=== PATIENT | male | born 1985 | race Two or more races ===

== ENCOUNTER 2024-06-07 17:53 | Emergency (ER) | payer MEDICAID, OTHER ==
[~2024-06-07] VITALS: Ht 172.7 cm; Wt 117.8 kg
[2024-06-07 18:22] VITALS: BP 152/92; PULSE 111; RESP 16; TEMP 98.1; O2SAT 96
[2024-06-07] MEDS: HYDROcodone-ACET 10/325MG TAB PO ONE (19:05)
[2024-06-07] MEDS ORDERED: HYDR-4798 PO (19:06)
[2024-06-07] MEDS ORDERED: CIPR0.3S19 OP (19:06)
== END 2024-06-07 19:12 | disposition home or self-care (01) ==
LOC: ER 17:53
DX: S05.01XA Injury of conjunctiva and corneal abrasion without foreign body, right eye, initial encounter (principal); X58.XXXA Exposure to other specified factors, initial encounter; Y93.89 Activity, other specified; Y92.89 Other specified places as the place of occurrence of the external cause; Y99.8 Other external cause status